=== PATIENT | female | born 1955 | race Caucasian/White ===

== ENCOUNTER 2023-08-20 13:48 | Inpatient (IN) ==
[2023-08-20 14:28] LABS: Hematocrit (blood only) 17.5 % (37.0-47.0); Hemoglobin 4.7 g/dl (12.0-16.0); Mean Corpuscular Hemoglobin 17.2 pg (25.0-34.0); Mean Corpuscular Hgb Conc 26.9 g/dL (32.0-36.0); Mean Corpuscular Volume 63.9 fL (80.0-100.0); Mean Platelet Volume 10.2 fL (9.4-12.4); Platelet Count 303 K/uL (130-400); RDW Standard Deviation 48.8 fL (36.4-46.3); Red Blood Count 2.74 M/uL (4.20-5.40); White Blood Count 15.84 K/ul (4.8-10.8)
[2023-08-20] MEDS ORDERED: SODIUM CHLORIDE 0.9% 250 ML IV PRN (14:32)
[2023-08-20 14:38] LABS: Albumin Globulin Ratio 1.5 (0.9-2); Albumin Level 3.8 gm/dl (3.4-5.0); BUN Creatinine Ratio 38.7 (10-20); Bilirubin,Total 0.4 mg/dl (0.2-1.0); Calcium 8.7 mg/dl (8.6-10.3); Creatinine Clr Calc Pharmacy 64.7 ml/min; Est GFR (African American) 96.3 ml/min; Est GFR (Non-African American) 83.1 ml/min; Globulin 2.6 gm/dl (2.5-4.0); Potassium 3.1 mmol/L (3.5-5.1); Total Protein 6.4 gm/dl (6.0-8.3)
--- NOTE | 2023-08-20 14:42 | XRay Report ---
TWO VIEW CHEST CLINICAL HISTORY: Atypical chest pain. FINDINGS: PA and lateral chest radiographs are compared to study dated 10/31/2022 and correlated with chest CT dated 03/27/2023. The cardiomediastinal silhouette is unremarkable. Emphysema and chronic in terstitial thickening is similar to previous. There are scattered calcified granulomas. No airspace c onsolidation or pleural effusion is identified. There is no pneumothorax. The skeletal structures are osteopenic. The bony thorax appears intact. Degenerative change and mild scoliosis is seen in the sp ine a IMPRESSION: Emphysematous change with no active disease in the chest. ACT 112: Negative or not required by law. Electronically signed by: Hill Shelton M.D. 08/20/2023 2:40 PM
[2023-08-20 14:43] LABS: Basophils # (auto) 0.07 K/uL (0.00-0.20); Basophils % (auto) 0.4 %; Hypochromasia Present; Immature Granulocytes # (auto) 0.12 K/uL (0.01-0.20); Immature Granulocytes % (auto) 0.8 %; Lymphocytes # (auto) 1.84 K/uL (1.20-3.40); Lymphocytes % (auto) 11.6 %; Microcytosis Present; Monocytes # (auto) 0.85 K/uL (0.11-0.59); Monocytes % (auto) 5.4 %; Neutrophils # (auto) 12.96 K/uL (1.40-6.50); Neutrophils % (auto) 81.8 %; Polychromasia 2+; Schistocytes 1+; Tear Drop Cells 1+
[2023-08-20 14:48] LABS: INR 1.1 (0.9-1.1); Partial Thromboplastin Ratio 0.7; Partial Thromboplastin Time 21 Seconds (21-31); Prothrombin Time 11.5 Seconds (9.0-12.0)
[2023-08-20 14:51] LABS: Troponin I High Sensitivity 76.3 pg/ml (0-14)
--- NOTE | 2023-08-20 14:52 | Emergency Department Note ---
Impression & Plan Symptomatic anemia, Elevated troponin, Acute hypokalemia, Metabolic acidosis, Leukocytosis ED Provider Note NAME: CLARI JI AGE: 68 SEX: F : 1955 ARRIVES VIA: Walk-In INFORMANT: Patient ED PROVIDER(S): Mark Toussaint DO CHIEF COMPLAINT: shortness of breath HPI: Patient is a 68-year-old female who presents to the ER with a past medical history of of duodenal ulcer, melena, hypertension, hyperlipidemia, COPD for shortness of breath which has been worsening over the past 10 days. She denies any headache or change in vision. No chest pain or belly pain. No nausea, vomiting, or diarrhea. No black or tarry stools. She notes she is on a blood thinner but does not remember exactly which one it is. She was sent in for evaluation of shortness of breath per the PCP. ADDITIONAL HISTORY OBTAINED: Per HPI Chronic Medical/Social Conditions Affecting Care: Per HPI PAST MEDICAL HISTORY:See Below PAST SURGICAL HISTORY:See Below FAMILY HISTORY:See Below SOCIAL HISTORY:See Below HOME MEDICATIONS:See Below ALLERGIES:See Below VITALS:See Below PHYSICAL EXAMINATION: GENERAL: Sitting up in bed, alert, pale appearing, disheveled EYE EXAM: normal conjunctiva. OROPHARYNX: mucous membranes are moist NECK: supple, no nuchal rigidity, no adenopathy, non-tender LUNGS: Clear to auscultation. Normal chest wall mechanics HEART: no murmurs, S1 normal and S2 normal ABDOMEN: abdomen soft, non-tender, normo-active bowel sounds, no masses, no rebound or guarding. RECTAL: Performed with female RN at bedside. Heme-negative. UPPER EXTREMITIES: upper extremities are grossly normal. LOWER EXTREMITIES: No pitting edema. NEURO EXAM: Normal sensorium, cranial nerves II-XII grossly intact, normal speech, no gross weakness of arms, no gross weakness of legs. MEDICAL DECISION MAKING: Patient is a 68-year-old female who presents the ER for the above-stated complaint. IV was established blood work was obtained. Labs show leukocytosis of 15,000. Hemoglobin at 4.7. Patient was slightly tachycardic. She denies any belly pain. Platelets were 303. Discussed with the pharmacist and outpatient labs reviewed and she only takes Plavix but no other thinners. D- dimer was negative. BMP with a hypokalemia at 3.1 and a CO2 of 19. BUN was elevated at 30 questioning an upper GI bleed. Glucose at 190. LFTs bilirubin was unremarkable. Troponin was slightly positive which I do favor secondary to the symptomatic anemia. Viral panel was negative. She was typed and crossed and ordered 2 units of PRBCs. I obtained consent. She was given an uncrossed unit while here in the ER. I discussed the case with the hospitalist patient was admitted for further workup. Consults/Care Managements Discussions: Per [facility] Triage Nursing notes reviewed. Limited review of prior medical records performed Vital Signs: reviewed and remarkable for tachy Differential diagnosis: Differential diagnoses includes but is not limited to pneumonia, bronchitis, COPD/Asthma exacerbation, pneumothorax, pulmonary embolism, congestive heart failure, acute coronary syndrome ER treatment provided: See below Diagnostics interpreted by me include EKG and cardiac monitoring as listed below: -Cardiac Monitoring: An order was placed for continuous cardiac monitoring. The monitor shows a rate of 101 with sinus rhythm. -ECG: Sinus tachycardia rate of 121 Normal axis No PVCs ST depressions in the inferior leads ST depressions in the lateral leads -Laboratory studies:Interpreted by me as stated above in MDM and shown below. Imaging studies: Xrays: As interpreted by me: Portable AP upright 1 view of the chest shows no focal infiltrate CTs show: none Procedures:none Critical Care: I have personally spent 31 minutes of critical care time in the direct management of this patient. This includes bedside care, interpretation of diagnostic studies, and testing, discussion with consultants, patient, and family members, and other required patient management activities. This 31 minutes is in excess of all separately billable procedures. Past Med/Surg History Medical History History of COVID-19 Fatty liver Seasonal allergies GERD (gastroesophageal reflux disease) RUQ pain Epigastric abdominal pain Surgical History Hx of tubal ligation History of surgical removal of pilonidal cyst Hx of tooth extraction Family History Mother Myocardial infarction Heart disease Stroke Father Diabetes Grandfather Cancer Uncle Cancer Denies family history of Ovarian cancer Prostate cancer Breast cancer Colorectal cancer Social History Smoking Status: Current every day smoker Age Started Using Tobacco: 18; Cigarettes Per Day: 10-12; Second Hand Exposure: Yes (as a child); Do You Dip or Chew Tobacco: No; Hx Alcohol Use: Yes (HBCS wine coolers) Alcohol type: other Alcohol Intake Frequency: Monthly or Less Hx Substance Use: No Preferred Language: Occitan Communication Ability: Effective Visual Impairment: Limited Hearing Ability: Normal 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 has been having trouble with stomach ulcer. caffeine: No during the past year weight has: decreased > 10 lbs Dental Care, Regularly: No Physical Activity Frequency: 3-4 Times per Week Physical Activity Frequency Comment: Occasional exercise with working/house cleaning Seatbelt Use: always Sunscreen Use: Yes Assistive Devices: None Allergies Allergies Allergy/AdvReac Type Severity Reaction Status Date / Time Penicillins Allergy Unknown tinnitus Verified 08/20/23 12:07 Sulfa (Sulfonamide Allergy Unknown Unknown Verified 08/20/23 12:07 Antibiotics) Home Meds Previous Rx's Medication Instructions Recorded cholecalciferol (vitamin D3) 125 125 mcg PO DAILY #30 caps 11/08/22 mcg (5,000 unit) capsule hydrochlorothiazide 12.5 mg tablet 12.5 mg PO DAILY #90 tabs 11/08/22 pantoprazole 40 mg tablet,delayed 40 mg PO BID #180 tabs 02/25/23 release ondansetron 4 mg disintegrating 4 mg PO Q8H PRN nausea and 03/27/23 tablet vomiting #30 tabs clopidogrel 75 mg tablet 75 mg PO DAILY #90 tabs 06/17/23 atorvastatin 80 mg tablet 80 mg PO HS #90 tabs 06/27/23 Results & Data (ED) Vital Signs Vital Signs - 24 hr 08/20/23 13:50 08/20/23 13:50 08/20/23 14:39 Temperature 35.7 C L Temperature Source Oral Pulse Rate 102 H 103 H Pulse Rhythm Pulse Strength Respiratory Rate 16 Blood Pressure 139/62 Blood Pressure Mean 87 Blood Pressure Position Pulse Oximetry 100 Oxygen Delivery Method Room Air Room Air Sepsis Recent Fever Within 48 Hours No Sepsis New/Unexplained Change in Mental Status No Sepsis Action Taken by Nursing No Action Required 08/20/23 14:47 08/20/23 15:10 08/20/23 15:29 Temperature 36.7 C 36.7 C Temperature Source Oral Oral Pulse Rate 97 H 97 H Pulse Rhythm Regular Regular Pulse Strength Normal Normal Respiratory Rate 18 18 Blood Pressure 124/75 109/75 Blood Pressure Mean 91 86 Blood Pressure Position Semi-fowlers Semi-fowlers Pulse Oximetry 98 100 100 Oxygen Delivery Method Room Air Sepsis Recent Fever Within 48 Hours Sepsis New/Unexplained Change in Mental Status Sepsis Action Taken by Nursing 08/20/23 15:44 08/20/23 16:14 Temperature 36.7 C 36.7 C Temperature Source Oral Oral Pulse Rate 100 H 96 H Pulse Rhythm Regular Regular Pulse Strength Normal Normal Respiratory Rate 20 20 Blood Pressure 122/75 117/72 Blood Pressure Mean 90 87 Blood Pressure Position Semi-fowlers Semi-fowlers Pulse Oximetry 100 98 Oxygen Delivery Method Sepsis Recent Fever Within 48 Hours Sepsis New/Unexplained Change in Mental Status Sepsis Action Taken by Nursing Laboratory Data 08/20/23 14:01 08/20/23 14:01 Lab Results 08/20/23 08/20/23 Range/Units 14:01 14:45 WBC 15.84 H (4.8-10.8) K/ul RBC 2.74 L (4.20-5.40) M/uL Hgb 4.7 L* (12.0-16.0) g/dl Hct 17.5 L* (37.0-47.0) % MCV 63.9 L (80.0-100.0) fL MCH 17.2 L (25.0-34.0) pg MCHC 26.9 L (32.0-36.0) g/dL RDW Std Deviation 48.8 H (36.4-46.3) fL RDW Coeff of Galo 22.0 H (11.5-14.5) % Plt Count 303 (130-400) K/uL MPV 10.2 (9.4-12.4) fL Immature Gran % (Auto) 0.8 % Neut % (Auto) 81.8 % Lymph % (Auto) 11.6 % [place] % (Auto) 5.4 % Eos % (Auto) 0.0 % Baso % (Auto) 0.4 % Reticulocyte % (Auto) 3.04 H (0.50-2.00) % Neut # (Auto) 12.96 H (1.40-6.50) K/uL Lymph # (Auto) 1.84 (1.20-3.40) K/uL J[place] # (Auto) 0.85 H (0.11-0.59) K/uL Eos # (Auto) 0.00 (0.00-0.50) K/uL Baso # (Auto) 0.07 (0.00-0.20) K/uL Reticulocyte # 0.080 (0.020-0.100) 10^6/uL Immature Gran # (Auto) 0.12 (0.01-0.20) K/uL Polychromasia 2+ Hypochromasia Present Microcytosis Present Tear Drop Cells 1+ Schistocytes 1+ PT 11.5 (9.0-12.0) Seconds INR 1.1 (0.9-1.1) APTT 21 (21-31) Seconds PTT Ratio 0.7 Fibrinogen 403 H (184-400) mg/dl D-Dimer 300 (0-500) ug/L FEU Sodium 135 L (136-145) mmol/L Potassium 3.1 L (3.5-5.1) mmol/L Chloride 104 (98-107) mmol/L Carbon Dioxide 19 L (21-32) mmol/L Anion Gap 12 H (3-11) BUN 29 H (6-23) mg/dl Creatinine 0.75 (0.6-1.2) mg/dl Est Cr Clr Drug Dosing 64.7 ml/min Est GFR ( Amer) 96.3 ml/min Est GFR (Non-Af Amer) 83.1 ml/min BUN/Creatinine Ratio 38.7 H (10-20) Glucose 191 H (70-99(Fasting)) mg/dl Calcium 8.7 (8.6-10.3) mg/dl Magnesium 1.9 (1.7-2.4) mg/dl Iron 11 L (35-150) mcg/dl TIBC 426 (250-450) mcg/dl Unsaturated IBC 415 H (155-355) mcg/dl Transferrin % Sat 3 L (15-50) % Total Bilirubin 0.4 (0.2-1.0) mg/dl AST 11 L (13-39) U/L ALT 12 (7-52) U/L Alkaline Phosphatase 81 (34-104) U/L Lactate Dehydrogenase 150 (86-244) U/L Troponin I High Sens 76.3 H* (0-14) pg/ml Total Protein 6.4 (6.0-8.3) gm/dl Albumin 3.8 (3.4-5.0) gm/dl Globulin 2.6 (2.5-4.0) gm/dl Albumin/Globulin Ratio 1.5 (0.9-2) Vitamin B12 288 (180-914) pg/ml Folate 17.08 (>5.38) ng/ml SARS-CoV-2 (PCR) NEGATIVE (Negative) Influenza Type A (PCR) Negative (Neg) Influenza Type B (PCR) Negative (Neg) RSV (RT-PCR) Negative (Neg) Blood Type O Positive Antibody Screen NEGATIVE Crossmatch See Detail Imaging Data Radiologist's Impression: Chest X-Ray 08/20/23 13:58 TWO VIEW CHEST CLINICAL HISTORY: Atypical chest pain. FINDINGS: PA and lateral chest radiographs are compared to study dated 10/31/2022 and correlated with chest CT dated 03/27/2023. The cardiomediastinal silhouette is unremarkable. Emphysema and chronic interstitial thickening is similar to previous. There are scattered calcified granulomas. No airspace consolidation or pleural effusion is identified. There is no pneumothorax. The skeletal structures are osteopenic. The bony thorax appears intact. Degenerative change and mild scoliosis is seen in the spine a IMPRESSION: Emphysematous change with no active disease in the chest. ACT 112: Negative or not required by law. Electronically signed by: Hill Shelton M.D. 08/20/2023 2:40 PM Discharge Plan Visit Data Chief Complaint: Shortness of Breath/Dyspnea Stated Complaint: TROUBLE BREATHING, REF BY DOC ABN EKG ED Provider: Mark Toussaint Discharge Problem: Symptomatic anemia, Elevated troponin, Acute hypokalemia, Metabolic acidosis, Leukocytosis Forms Stand Alone Forms: [facility] Liquid[facility] Prescriptions Prescriptions: No Action pantoprazole 40 mg tablet,delayed release (DR/EC) 40 mg PO BID Qty: 180 3RF ondansetron 4 mg tablet,disintegrating 4 mg PO Q8H PRN (Reason: nausea and vomiting) Qty: 30 5RF clopidogrel 75 mg tablet 75 mg PO DAILY Qty: 90 3RF cholecalciferol (vitamin D3) 125 mcg (5,000 unit) capsule 125 mcg PO DAILY Qty: 30 0RF hydrochlorothiazide 12.5 mg tablet 12.5 mg PO DAILY Qty: 90 3RF atorvastatin 80 mg tablet 80 mg PO HS Qty: 90 3RF Referrals Referrals: Shaun Khan DO [Primary Care Provider] - Discharge Problem: Leukocytosis Qualifiers: Leukocytosis type: unspecified Qualified Code(s): D72.829 - Elevated white blood cell count, unspecified
[2023-08-20 14:53] LABS: Influenza A virus by PCR Negative (Neg); Influenza B virus by PCR Negative (Neg); RSV by PCR Negative (Neg); SARS CoV2 RNA(COVID-19) Ceph NEGATIVE (Negative)
--- NOTE | 2023-08-20 15:02 | Electrocardiogram Report ---
Test Reason : Blood Pressure : / mmHG Vent. Rate : 121 BPM Atrial Rate : 121 BPM P-R Int : 140 ms QRS Dur : 088 ms QT Int : 346 ms P-R-T Axes : 089 030 078 degrees QTc Int : 491 ms Sinus tachycardia Abnormal ECG When compared with ECG of 31-OCT-2022 07:42, Vent. rate has increased BY [address] now depressed in Inferior leads Confirmed by Dustin Amador ([id number]) on 08/20/2023 3:01:56 PM Referred By: Confirmed By:Jose Amador
--- NOTE | 2023-08-20 15:10 | History & Physical Report ---
Date of Service August 20, 2023 Assessment & Plan (1) Symptomatic anemia: Plan: -Admit to the PCU on tele and pulse oximetry -Currently hemodynamically stable, stable on RA, and asymptomatic at rest -Presented to the ED from her PCP's office earlier today due to ongoing MONAHAN/SOB and generalized weakness -Found to have a Hgb of 4.7, down from 12.1 as of 04/17/23 -ED reports that her stool was heme negative on MIRIAM -Patient denies signs of recent bleeding, denies chest pain, abd, pain, hematuria, melena, bloody stools, and recent LE pain -MCV, Hct, and MCHC are consistent with possible iron deficiency -Platelets, INR, and LFT's are WNL -She is without signs of bruising/bleeding on inspection of both anterior/posterior lower extremities -Patient was diagnosed with a duodenal ulcer on her last EGD at [facility] on 05/22/2022 -At this time the most likely source of her severe anemia is a possible GI ulcer -We will obtain a STAT CT of the abd/pelvis w/IV con for further evaluation -Will obtain D-dimer, LDH, Haptoglobin, and Fibrinogen for further evaluation of possible hemolysis -Currently receiving the 1 units of uncrossed PRBC's, will receive 1 unit of crossed PRBC's when the first unit is complete -Will start q6h CBC after the second unit is complete -Goal Hgb should be at or above 8 with her elevated tropnin level -GI has been consulted and is planning on doing an EGD tomorrow -Strict NPO at this time -Will need to hold her Plavix at this time as her severe anemia is more life threatening than possible occluded left arterial stent placed in May of this year -Will start Protonix drip with bolus now -Order for 2 large bore IV's was placed -Instructed patient to not get out of bed without help to prevent possible syncope or falls -BL YEFRI's for DVT PPX -AM CMP, mag, PT/INR (2) Dyspnea on exertion: Plan: -Patient has noted significant MONAHAN since 08/14/23 -Denies symptoms at rest -Denies recent chest pain/pressure -She is a current smoker with 10 Cigarettes daily -Has been stable on RA and hemodynamically stable -She does have a previous hx of DVT/PE but is currently without signs of DVT in the BL LE's -Initial high sen trop elevated at 76 -Patient did have ST segment depressions in the inferior leads on arrival -CXR today shows signs of emphysema but is otherwise unremarkable -Likely due to her significant anemia and poor lung function at baseline -Continue treatment per anemia plan, continue to monitor on tele and pulse oximetry -Monitor for improvement with ongoing transfusions (3) Elevated troponin: Plan: -Initial high sen trop elevated at 76 -Patient has been significantly dyspneic on exertion but has been asymptomatic at rest -Initial ECG obtained in the ED, while the patient was tachycardic shows ST segment depressions in the inferior leads -Likely due to demand from here severe anemia with likely underlying CAD as she has a significant hx of PAD in the recent past -Will monitor 2 hour high sen trop and continue to trend q6h overnight -Continue to monitor on tele -Will repeat an ECG after her initial unit of PRBC's is complete to monitor for improvement in her ST segment depressions -If troponin continues to elevated or she becomes symptomatic at rest will consult Cardiology (4) High anion gap metabolic acidosis: Plan: -AG elevated at 12 with bicarb of 19 -Has been stable on RA and has been hemodynamically stable -Will obtain a STAT lactate level as I suspect this will be elevated due to poor peripheral perfusion with her Hgb of 4.7 -Will continue to transfusion and monitor closely -Monitor evening BMP (5) Hypokalemia: Plan: -Initial potassium level of 3.1 -Mag is stable at 1.9 -Likely due to poor oral intake over the past week -Will give 3 bags of 10 meq IV KCL on admission -Will order repeat potassium level tonight with repeat labs and replete as needed -Conitue to monitor on tele (6) PAD (peripheral artery disease): Plan: -S/P Stent to left JEANA occlusion with Dr. Domingo on 05/2023 -Has been on plavix monotherapy, last dose was this am -Will need to hold plavix for now until she is stable from a bleeding risk -Will need to resume plavix when stable (7) GERD (gastroesophageal reflux disease): Plan: -Continue Protonix drip (8) HTN (hypertension): Plan: -Stable -Holding antihypertensives with possible GI bleed (9) COPD (chronic obstructive pulmonary disease): Plan: -Stable on RA -In no respiratory distress -Incentive spirometry Plan The patient was discussed with Edin at the time of the admission History of Present Illness Chief Complaint: Ongoing SOB/MONAHAN Primary Care Provider: Shaun Khan DO Thi is a 68 year old female with a PMH significant for PAD S/P Stent to left JEANA occlusion 05/[address] Dustin Domingo (currently on Plavix), previous hx of DVT and PE (Previously on Plavix), HTN, dyslipidemia, CAD, tobacco abuse, COPD, and hx od PUD with previous GI bleed who presented to the [facility] ED from her PCP's office due to concerns for progressive MONAHAN/SOB. Per the PCP note, the patient has been experiencing SOB, fatigue, weakness, and chills since 08/14/23. Due to her complex medical hx including previous DVT/PE she was sent to the ED for further evaluation. She was noted to be tachycardic at 103 BPM but was otherwise stable. Labs were significant for a Hgb of 4.7 (down from 12 as of 04/17/23), WBC of 15 with neutrophil predominance of 12, Hct of 17, MCV of 63, MCHC of 26, stable cr of 0.75 with elevated BUN of 29, AG of 12 with bicarb of 19, potassium of 3.1, LFT's and INR WNL, initial high sen trop of 75, and Covid 19/RSV/Influenza negative. Chest xray was read as "Emphysematous change with no active disease in the chest.". Prior to admission the patient was consented for blood, ordered 1 unit of uncrossed PRBC's with a second unit of crossed PRBC's to be giving after. At the time of the exam the patient was sitting in bed in no acute distress. She appears ill but non-toxic. She states that she had been in her normal state of health until 08/14/23 when she started to develop what she thought were flu like symptoms including chills, fatigue, body aches, and significant MONAHAN. She has been asymptomatic at rest. When asked, she clearly denies recent fever, chest pain/pressure, SOB at rest, cough, hemoptysis, abd pain, vomiting, dysuria, hematuria, melena, diarrhea, bright red stool, LE pain/swelling, and recent trauma. She has been taking her home medications as prescribed including her daily Plavix with her last dose being this am. She has had some nausea but denies vomiting. She states that she had an EGD approximately 2 years ago which is when she was diagnosed with her Duodenal Ulcer. She has been taking Protonix daily and denies recent alcohol, aspirin, Aleve, Advil, Motrin, or other NSAID's. She is still smoking approximately 10 Cigarettes daily. When she has pain recently she has only been using tylenol. She is a full code and would want her son to make medical decisions for her if she cannot make them herself. Please refer to Dr. Jesus' attestation for any changes to the treatment plan Allergies Allergy/AdvReac Type Severity Reaction Status Date / Time Penicillins Allergy Unknown tinnitus Verified 08/20/23 12:07 Sulfa (Sulfonamide Allergy Unknown Unknown Verified 08/20/23 12:07 Antibiotics) Home Medications Medication Instructions Recorded Confirmed Type cholecalciferol (vitamin D3) 125 125 mcg PO DAILY #30 caps 11/08/22 08/20/23 Rx mcg (5,000 unit) capsule hydrochlorothiazide 12.5 mg tablet 12.5 mg PO DAILY #90 tabs 11/08/22 08/20/23 Rx pantoprazole 40 mg tablet,delayed 40 mg PO BID #180 tabs 02/25/23 08/20/23 Rx release ondansetron 4 mg disintegrating 4 mg PO Q8H PRN nausea and 03/27/23 08/20/23 Rx tablet vomiting #30 tabs clopidogrel 75 mg tablet 75 mg PO DAILY #90 tabs 06/17/23 08/20/23 Rx atorvastatin 80 mg tablet 80 mg PO HS #90 tabs 06/27/23 08/20/23 Rx Past Med/Surg History Medical History History of COVID-19 Fatty liver Seasonal allergies GERD (gastroesophageal reflux disease) RUQ pain Epigastric abdominal pain Surgical History Hx of tubal ligation History of surgical removal of pilonidal cyst Hx of tooth extraction Family History Mother Myocardial infarction Heart disease Stroke Father Diabetes Grandfather Cancer Uncle Cancer Denies family history of Ovarian cancer Prostate cancer Breast cancer Colorectal cancer Social History Smoking Status: Current every day smoker Age Started Using Tobacco: 18; Cigarettes Per Day: 10-12; Second Hand Exposure: Yes (as a child); Do You Dip or Chew Tobacco: No; Hx Alcohol Use: Yes ([employer] wine coolers) Alcohol type: other Alcohol Intake Frequency: Monthly or Less Hx Substance Use: No Preferred Language: R[place] Communication Ability: Effective Visual Impairment: Limited Hearing Ability: Normal Wood 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 has been having trouble with stomach ulcer. caffeine: No during the past year weight has: decreased > 10 lbs Dental Care, Regularly: No Physical Activity Frequency: 3-4 Times per Week Physical Activity Frequency Comment: Occasional exercise with working/house cleaning Seatbelt Use: always Sunscreen Use: Yes Assistive Devices: None Physical Exam Physical Exam: Physical Exam: General: In no acute distress, stated age, ill appearing but non-toxic HEENT: Normocephalic, atraumatic, no scleral icterus, pupils around round, symmetrical, and reactive to light, pale palpebral conjunctivae, moist mucus membranes, trachea midline, no thyromegaly Chest/Pulm: No respiratory distress, symmetrical chest expansion, scattered expiratory wheezing Cardiac: tachycardic rate, regular rhythm, no murmurs noted Abdomen: Negative for ascites and bruising, normoactive bowel sounds, soft, non-tender to palpation throughout Musculoskeletal: Symmetrical and without signs of acute trauma, upper and lower extremities with full ROM, no atrophy, spasticity, or flaccidity Extremities: Radial, dorsalis pedis, and posterior tibial pulses are intact and symmetrical, no edema noted in the BL LE's Skin: Extensive skin exam was done at the time of the admission and was negative for sings of bruising or bleeding in the head, chest, abdomen, back, BL flanks, buttocks, and BL lower extremities >Previous stenting sites on the BL thighs appear intact and without signs of bleeding/bruising. Neuro: Alert and oriented to person, place, month, year, and president, no focal defects, no tremors noted Psych: No acute distress, calm and cooperative during the exam Results & Data Results & Data Vital Signs (Past 12 Hours) Vital Signs Temp Pulse Resp BP Pulse Ox O2 Del Method 08/20/23 14:47 98 Room Air 08/20/23 14:39 103 H 08/20/23 13:50 35.7 C L 102 H 16 139/62 100 Room Air 08/20/23 13:50 Room Air Laboratory Results Abnormal lab results 08/20/23 08/20/23 Range/Units 14:01 14:45 WBC 15.84 H (4.8-10.8) K/ul RBC 2.74 L (4.20-5.40) M/uL Hgb 4.7 L* (12.0-16.0) g/dl Hct 17.5 L* (37.0-47.0) % MCV 63.9 L (80.0-100.0) fL MCH 17.2 L (25.0-34.0) pg MCHC 26.9 L (32.0-36.0) g/dL RDW Std Deviation 48.8 H (36.4-46.3) fL RDW Coeff of Galo 22.0 H (11.5-14.5) % Reticulocyte % (Auto) 3.04 H (0.50-2.00) % Neut # (Auto) 12.96 H (1.40-6.50) K/uL [place] # (Auto) 0.85 H (0.11-0.59) K/uL Sodium 135 L (136-145) mmol/L Potassium 3.1 L (3.5-5.1) mmol/L Carbon Dioxide 19 L (21-32) mmol/L Anion Gap 12 H (3-11) BUN 29 H (6-23) mg/dl BUN/Creatinine Ratio 38.7 H (10-20) Glucose 191 H (70-99(Fasting)) mg/dl Iron 11 L (35-150) mcg/dl Unsaturated IBC 415 H (155-355) mcg/dl Transferrin % Sat 3 L (15-50) % AST 11 L (13-39) U/L Troponin I High Sens 76.3 H* (0-14) pg/ml Crossmatch See Detail Diagnostic Findings Chest X-Ray 08/20/23 13:58 TWO VIEW CHEST CLINICAL HISTORY: Atypical chest pain. FINDINGS: PA and lateral chest radiographs are compared to study dated 10/31/2022 and correlated with chest CT dated 03/27/2023. The cardiomediastinal silhouette is unremarkable. Emphysema and chronic interstitial thickening is similar to previous. There are scattered calcified granulomas. No airspace consolidation or pleural effusion is identified. There is no pneumothorax. The skeletal structures are osteopenic. The bony thorax appears intact. Degenerative change and mild scoliosis is seen in the spine a IMPRESSION: Emphysematous change with no active disease in the chest. ACT 112: Negative or not required by law. Electronically signed by: Hill Shelton M.D. 08/20/2023 2:40 PM ECG Additional Comments: Sinus tachycardia Abnormal ECG When compared with ECG of 31-OCT-2022 07:42, Vent. rate has increased BY [address] now depressed in Inferior leads Confirmed by Dustin Amador ([id number]) on 08/20/2023 3:01:56 PM Code Status & VTE Plan Code Status Full code VTE Prophylaxis Plan VTE Prophylaxis will be ordered: Yes Supervising Physician Co-Signing Physician Notes I have personally seen, evaluated and examined the patient. I have also personally discussed the management of the patient with the resident physician/ARNULFO and I agree with the exam findings documented in the history and physical examination and the documented assessment and plan unless otherwise stated below. Brief Exam: In general this is a pleasant 68-year-old female who is alert and o riented x 3. She again denies to my myself no rectal bleeding no hematic emesis no black stools no tarry stools no change in bowel habits other than over the last 4 to 6 months she has had constipation and fullness in her belly. She has never had a colonoscopy. HEENT: Normocephalic atraumatic. Her conjunctive are quite pale. Heart: Regular rate and rhythm no murmur or ectopy or rub. Lungs: Diminished but clear. Abdomen is mildly protuberant soft minimal discomfort with deep palpation no rebound no peritoneal sign no pressure organomegaly or abdominal bruits. Extremities: Intact no clubbing cyanosis or edema. Neurologically: Alert and oriented x 3 no focal deficit on exam. Assessment/plan: As described above. Please refer to orders for further planning. Transfuse up to at least a hemoglobin of 7. Await iron studies. Appreciate GIs input. Once the patient has upper or lower scopes ruling out any pathology that would contraindicate use of Plavix we will restart the Plavix at that time. PG Care Time/CCT Total # of Minutes Spent Total Time Spent with Patient: Total time spent is greater than 50% in coordination of care (as documented) at patient's floor/unit and/or counseling patient: Coding [place] [address] INT INP/OBS CARE 3/75MIN Patient Type Established Medical Decision Making High Complexity Diagnoses Symptomatic anemia D64.9 Dyspnea on exertion R06.09 Elevated troponin R79.89 High anion gap metabolic acidosis E87.29 Hypokalemia E87.6 PAD (peripheral artery disease) I73.9 GERD (gastroesophageal reflux disease) K21.9 HTN (hypertension) I10 COPD (chronic obstructive pulmonary disease) J44.9
[2023-08-20 15:35] LABS: Reticulocyte % 3.04 % (0.50-2.00); Reticulocytes # 0.08 10^6/uL (0.020-0.100)
[2023-08-20 15:38] LABS: Magnesium 1.9 mg/dl (1.7-2.4)
[2023-08-20 16:21] LABS: D Dimer 300 ug/L FEU (0-500); Fibrinogen 403 mg/dl (184-400)
[2023-08-20 16:23] LABS: Folate (Folic Acid),Ser orPlas 17.08 ng/ml (>5.38)
[2023-08-20] MEDS: OPTIRAY 320 100ml IV ONE (16:42)
[2023-08-20] MEDS: PANTOprazole 80 MG in DEXTROSE 5% 100 ML IV ONE (16:58)
--- NOTE | 2023-08-20 17:19 | CT Scan Report ---
CT SCAN OF THE ABDOMEN AND PELVIS WITH IV CONTRAST CLINICAL HISTORY: Constipation. Anemia. COMPARISON STUDY: Abdominal ultrasound dated 10/06/2021. TECHNIQUE: Following the IV administration of 92 cc of Optiray 320, CT scan of the abdomen and pelvi s is performed from the lung bases to the proximal femora. Images are reviewed in the axial, sagittal , and coronal planes. IV contrast was administered without complication. A dose lowering technique wa s utilized adhering to the principles of ALARA. CT DOSE: 682.25 mGy.cm FINDINGS: Lung bases: The heart is normal in size and without pericardial effusion. There are scattered calcifi ed granulomas. A 3 mm right lower lobe pulmonary nodule is seen on image #12. The lung bases are othe rwise clear noting bibasilar scarring/atelectasis. Liver: The contrast-enhanced liver is normal in size, contour, and attenuation. There is no intrahepa tic biliary ductal dilatation. The hepatic veins and portal veins are patent. Gallbladder: Unremarkable. Spleen: Normal in size and attenuation. Pancreas: There is significant and abnormal dilatation of the pancreatic duct which measures up to 12 mm near the ampulla. No obvious mass lesion is identified. There is corresponding pancreatic atrophy . There is no significant dilatation of the common bile duct. Adrenal glands: Unremarkable. Kidneys: The contrast enhanced kidneys are normal in size and without hydronephrosis. The kidneys enh ance symmetrically. A 1.4 cm cyst is noted on the left. Abdominal vasculature: There is advanced atherosclerotic calcification and mild ectasia of the abdomi nal aorta. A stent in the left common iliac artery is patent. Bowel: There is mild colonic fecal retention. Question focal irregular wall thickening versus under d istention of the ascending colon on axial image #159. No bowel obstruction is seen. There is mild inf iltration identified around the proximal duodenum. There is layering hyperdense material within the s tomach and duodenum. The appendix is well-visualized and normal. Peritoneum: There is no intraperitoneal free air or abdominal ascites. There is a small fat-containin g umbilical hernia. Lymphadenopathy: None. Pelvic viscera: The bladder is mildly distended but otherwise normal in appearance. The uterus and ad nexa are normal as visualized. Skeletal structures: The skeletal structures are osteopenic. There is moderate lumbosacral spondylosi s. No lytic or blastic lesions are seen. IMPRESSION: 1. There is significant and abnormal dilatation of the main pancreatic duct with corresponding glandu lar atrophy. The duct is dilated to the ampulla, with no obvious mass lesion identified. The common b ile duct and intrahepatic bile ducts are normal in caliber. Although this could potentially be relate d to stricture of the pancreatic duct, an occult ampullary mass lesion is the diagnosis of exclusion. GI follow-up and ERCP is recommended in follow-up. 2. There is mild infiltration seen around the proximal duodenum, which may be related to the pancreat ic process. A duodenitis or ulcer disease could appear similar. Additionally, there is a small amount of layering hyperdense material within the stomach and proximal duodenum. This is nonspecific and ma y represent ingested material. Extravasated contrast is not entirely excluded. This should also be as sessed at the time of endoscopy. 3. There is underdistention versus focal irregular wall thickening of the ascending colon. Underdiste ntion is favored. If not recently performed then a follow-up colonoscopy is recommended for further a ssessment 4. Additional findings as above. ACT 112: Positive. There are findings on this exam that require communication between the performing entity and the patient following Patient Test Result Information Act ([place] Act 112) guidelines. Electronically signed by: Hill Shelton M.D. 08/20/2023 5:18 PM
[2023-08-20] MEDS: PANTOprazole 40 MG in DEXTROSE 5% MINI-B 100 ML IV SCH (17:24)
[2023-08-20] MEDS: PANTOPRAZOLE BOLUS/DRIP IV STA (17:24)
[2023-08-20] MEDS: POTASSIUM CHLORIDE / WTR 10 MEQ/100 ML PLCT IV SCH (17:24)
[2023-08-20 18:25] LABS: Appearance Urine Clear (Clear); Bilirubin Urine Negative (Negative); Blood Urine Negative (Negative); Color Urine Yellow; Glucose Urine UA Negative (Negative); Ketones Urine Negative (Negative); Leukocyte Esterase Urine Negative (Negative); Nitrite Urine Negative (Negative); Protein Urine Negative (Negative); Specific Gravity Urine 1.027 (1.000-1.030); Urobilinogen Urine Negative (Negative)
[2023-08-20 23:24] LABS: BUN Creatinine Ratio 29.6 (10-20); Calcium 8.1 mg/dl (8.6-10.3); Creatinine Clr Calc Pharmacy 67.3 ml/min; Est GFR (African American) 102.9 ml/min; Est GFR (Non-African American) 88.8 ml/min; Potassium 3.5 mmol/L (3.5-5.1)
[2023-08-20 23:50] LABS: Troponin I High Sensitivity 350.9 pg/ml (0-14)
[2023-08-20 23:54] LABS: Anisocytosis Present; Basophils # (auto) 0.05 K/uL (0.00-0.20); Basophils % (auto) 0.3 %; Eosinophils # (auto) 0.02 K/uL (0.00-0.50); Eosinophils % (auto) 0.1 %; Hemoglobin 7.2 g/dl (12.0-16.0); Hypochromasia Present; Immature Granulocytes # (auto) 0.13 K/uL (0.01-0.20); Immature Granulocytes % (auto) 0.8 %; Lymphocytes # (auto) 2.32 K/uL (1.20-3.40); Lymphocytes % (auto) 15.1 %; Mean Corpuscular Hemoglobin 21.2 pg (25.0-34.0); Mean Corpuscular Volume 70.6 fL (80.0-100.0); Mean Platelet Volume 10.6 fL (9.4-12.4); Microcytosis Present; Monocytes # (auto) 1.46 K/uL (0.11-0.59); Monocytes % (auto) 9.5 %; Neutrophils # (auto) 11.42 K/uL (1.40-6.50); Neutrophils % (auto) 74.2 %; Platelet Count 199 K/uL (130-400); Polychromasia 1+; RDW Coefficient of Variation 24.5 % (11.5-14.5); RDW Standard Deviation 61.6 fL (36.4-46.3)
[2023-08-21] MEDS ORDERED: SODIUM CHLORIDE 0.9% 250 ML IV PRN (00:51)
[2023-08-21] MEDS ORDERED: STAT IV/IM STA (00:52)
[2023-08-21] MEDS: CALCIUM GLUCONATE 10% 1,000 MG in SODIUM CHLOR 0.9% MINI-B 50 ML IV ONE (03:36)
[2023-08-21 05:36] LABS: Prothrombin Time 11.4 Seconds (9.0-12.0)
[2023-08-21 05:40] LABS: Albumin Globulin Ratio 1.5 (0.9-2); Albumin Level 3.3 gm/dl (3.4-5.0); BUN Creatinine Ratio 25.7 (10-20); Bilirubin,Total 1.2 mg/dl (0.2-1.0); Calcium 8.6 mg/dl (8.6-10.3); Creatinine Clr Calc Pharmacy 68.2 ml/min; Est GFR (African American) 104.6 ml/min; Est GFR (Non-African American) 90.3 ml/min; Globulin 2.2 gm/dl (2.5-4.0); Magnesium 1.9 mg/dl (1.7-2.4); Potassium 3.3 mmol/L (3.5-5.1); Total Protein 5.5 gm/dl (6.0-8.3); Troponin I High Sensitivity 367.5 pg/ml (0-14)
[2023-08-21 05:53] LABS: Anisocytosis Present; Basophils # (auto) 0.05 K/uL (0.00-0.20); Basophils % (auto) 0.4 %; Eosinophils # (auto) 0.08 K/uL (0.00-0.50); Eosinophils % (auto) 0.6 %; Hematocrit (blood only) 26.6 % (37.0-47.0); Hemoglobin 8.1 g/dl (12.0-16.0); Hypochromasia Present; Immature Granulocytes # (auto) 0.07 K/uL (0.01-0.20); Immature Granulocytes % (auto) 0.6 %; Lymphocytes # (auto) 2.19 K/uL (1.20-3.40); Lymphocytes % (auto) 17.7 %; Mean Corpuscular Hemoglobin 22.3 pg (25.0-34.0); Mean Corpuscular Hgb Conc 30.5 g/dL (32.0-36.0); Mean Corpuscular Volume 73.3 fL (80.0-100.0); Mean Platelet Volume 10.5 fL (9.4-12.4); Monocytes # (auto) 1.27 K/uL (0.11-0.59); Monocytes % (auto) 10.3 %; Neutrophils # (auto) 8.69 K/uL (1.40-6.50); Neutrophils % (auto) 70.4 %; Platelet Count 165 K/uL (130-400); Polychromasia 1+; RDW Coefficient of Variation 23.4 % (11.5-14.5); RDW Standard Deviation 61.1 fL (36.4-46.3); Red Blood Count 3.63 M/uL (4.20-5.40); White Blood Count 12.35 K/ul (4.8-10.8)
[2023-08-21] MEDS: POTASSIUM CHLORIDE / WTR 10 MEQ/100 ML PLCT IV SCH (08:10)
--- NOTE | 2023-08-21 08:15 | Gastrointestinal Consultation ---
Date of Consultation August 21, 2023 Assessment & Plan (1) Symptomatic anemia: Patient has been NPO, came in with low hgb of 4.7 which has improved with PRBC. she has been given 3 units and her hgb improved to 8.1 today. She is not seeing any obvious GI bleeding, but does have a history of a duodenal ulcer. SOB has improved since recieving the PRBC. I had discussed case with Dr. Booker who helped advise on plan. - Will plan for EGD today. - continue with protonix drip. - monitor Hgb/hct. transfuse as needed. - will recommend colonoscopy as an outpatient to assess the possible wall thickening of her ascending colon seen on CT scan. - she will need to be set up for EUS/ERCP as an outpatient for evaluation of the abnormal dilation of the main pancreatic duct. Supervising Physician Co-Signing Physician Notes I saw the patient and agree with the findings as documented by JANES Bonilla Proceed with EGD. risks/benefits and procedure discussed with patient, who agrees to proceed History of Present Illness Reason for Consultation: hgb 4.7, history of duodenal ulcer Requesting Physician: Tom Elias PA-C Attending Physician: Romario Hawthorne MD History of Present Illness Patient is a 68 year old female with a past medical history of PAD S/P Stent to left JEANA occlusion 05/[address] Dustin Domingo (currently on Plavix), previous hx of DVT and PE (Previously on Plavix), HTN, dyslipidemia, CAD, tobacco abuse, COPD, and hx of PUD with previous GI bleed who presented to the [facility] ED from her PCP's office due to concerns for progressive MONAHAN/SOB. Patient tells me that she has had this come on suddenly in the past few days. Upon evaluation in the ED her hgb was 4.7. she has been given PRBC and her hgb 08/20 is 8.1. She tells me that she did have a history of duodenal ulcer in the past. no nsaid use. She tells me that since she has recieved the blood that her SOB has improved. she tells me she is predominantly constipated which is her baseline. she denies any chest pain, nausea, vomiting, abdominal pain, change in bowels, melena, or brbpr. EGD 05/2022 nonbleeding duodenal ulcer, small hiatal hernia, mildly severe reflux. Allergies Allergy/AdvReac Type Severity Reaction Status Date / Time Penicillins Allergy Unknown tinnitus Verified 08/20/23 12:07 Sulfa (Sulfonamide Allergy Unknown Unknown Verified 08/20/23 12:07 Antibiotics) Home Medications Medication Instructions Recorded Confirmed Type cholecalciferol (vitamin D3) 125 125 mcg PO DAILY #30 caps 11/08/22 08/20/23 Rx mcg (5,000 unit) capsule hydrochlorothiazide 12.5 mg tablet 12.5 mg PO DAILY #90 tabs 11/08/22 08/20/23 Rx pantoprazole 40 mg tablet,delayed 40 mg PO BID #180 tabs 02/25/23 08/20/23 Rx release ondansetron 4 mg disintegrating 4 mg PO Q8H PRN nausea and 03/27/23 08/20/23 Rx tablet vomiting #30 tabs clopidogrel 75 mg tablet 75 mg PO DAILY #90 tabs 06/17/23 08/20/23 Rx atorvastatin 80 mg tablet 80 mg PO HS #90 tabs 06/27/23 08/20/23 Rx Patient History Medical History History of COVID-19 Fatty liver Seasonal allergies GERD (gastroesophageal reflux disease) RUQ pain Epigastric abdominal pain Surgical History Hx of tubal ligation History of surgical removal of pilonidal cyst Hx of tooth extraction Family History Mother Myocardial infarction Heart disease Stroke Father Diabetes Grandfather Cancer Uncle Cancer Denies family history of Ovarian cancer Prostate cancer Breast cancer Colorectal cancer Social History Smoking Status: Current every day smoker Tobacco Type: Cigarettes Age Started Using Tobacco: 18; Cigarettes Per Day: 10; Second Hand Exposure: Yes (as a child); Do You Dip or Chew Tobacco: No; Hx Alcohol Use: No Hx Substance Use: No Preferred Language: Mexican Communication Ability: Effective Visual Impairment: Limited Hearing Ability: Normal Weight Shifter Required: No Beliefs That Will Affect Care: None marital status: / Current Living Situation: Family Current Living Situation Comment: Lives at home with son Boris 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 has been having trouble with stomach ulcer. caffeine: No during the past year weight has: decreased > 10 lbs Dental Care, Regularly: No Physical Activity Frequency: 3-4 Times per Week Physical Activity Frequency Comment: Occasional exercise with working/house cleaning Seatbelt Use: always Sunscreen Use: Yes Assistive Devices: Denture - Upper, Denture - Lower and Glasses Review of Systems Review of Systems: All systems reviewed & are unremarkable except as noted in HPI & below Physical Exam Constitutional: WD/WN, vitals as above Respiratory: normal respiratory effort, lungs clear to auscultation Cardiovascular: RRR, no murmur, no edema Gastrointestinal (Abdomen): normal bowel sounds, soft, nontender, no hepatosplenomegaly Psychiatric: Orientation: alert and oriented x 3 Results & Data Vital Signs (Past 12 Hours) Vital Signs Temp Pulse Pulse Resp BP BP Pulse Ox 08/21/23 07:51 98.1 F 72 18 117/73 98 08/21/23 03:20 97.7 F 68 16 122/78 99 08/21/23 03:00 97.7 F 69 19 125/76 95 08/21/23 02:27 97.5 F L 86 18 115/65 97 08/21/23 01:57 97.4 F L 82 18 113/69 97 08/21/23 01:42 98.1 F 73 18 115/74 99 08/21/23 01:41 97.9 F 74 18 115/73 99 08/21/23 01:20 97.7 F 85 18 113/69 100 08/20/23 23:00 98.1 F 78 18 120/79 99 08/20/23 21:55 77 08/20/23 21:10 08/20/23 20:44 97.9 F 81 18 121/76 97 08/20/23 20:37 97.7 F 77 18 115/71 95 O2 Del Method 08/21/23 07:51 Room Air 08/21/23 03:20 08/21/23 03:00 Room Air 08/21/23 02:27 08/21/23 01:57 08/21/23 01:42 08/21/23 01:41 08/21/23 01:20 08/20/23 23:00 Room Air 08/20/23 21:55 08/20/23 21:10 Room Air 08/20/23 20:44 08/20/23 20:[address] SCAN OF THE ABDOMEN AND PELVIS WITH IV CONTRAST CLINICAL HISTORY: Constipation. Anemia. COMPARISON STUDY: Abdominal ultrasound dated 10/06/2021. TECHNIQUE: Following the IV administration of 92 cc of Optiray 320, CT scan of the abdomen and pelvis is performed from the lung bases to the proximal femora. Images are reviewed in the axial, sagittal, and coronal planes. IV contrast was administered without complication. A dose lowering technique was utilized adhering to the principles of ALARA. CT DOSE: 682.25 mGy.cm FINDINGS: Lung bases: The heart is normal in size and without pericardial effusion. There are scattered calcified granulomas. A 3 mm right lower lobe pulmonary nodule is seen on image #12. The lung bases are otherwise clear noting bibasilar scarring/atelectasis. Liver: The contrast-enhanced liver is normal in size, contour, and attenuation. There is no intrahepatic biliary ductal dilatation. The hepatic veins and portal veins are patent. Gallbladder: Unremarkable. Spleen: Normal in size and attenuation. Pancreas: There is significant and abnormal dilatation of the pancreatic duct which measures up to 12 mm near the ampulla. No obvious mass lesion is identified. There is corresponding pancreatic atrophy. There is no significant dilatation of the common bile duct. Adrenal glands: Unremarkable. Kidneys: The contrast enhanced kidneys are normal in size and without hydronephrosis. The kidneys enhance symmetrically. A 1.4 cm cyst is noted on the left. Abdominal vasculature: There is advanced atherosclerotic calcification and mild ectasia of the abdominal aorta. A stent in the left common iliac artery is patent. Bowel: There is mild colonic fecal retention. Question focal irregular wall thickening versus under distention of the ascending colon on axial image #159. No bowel obstruction is seen. There is mild infiltration identified around the proximal duodenum. There is layering hyperdense material within the stomach and duodenum. The appendix is well-visualized and normal. Peritoneum: There is no intraperitoneal free air or abdominal ascites. There is a small fat-containing umbilical hernia. Lymphadenopathy: None. Pelvic viscera: The bladder is mildly distended but otherwise normal in appearance. The uterus and adnexa are normal as visualized. Skeletal structures: The skeletal structures are osteopenic. There is moderate lumbosacral spondylosis. No lytic or blastic lesions are seen. IMPRESSION: 1. There is significant and abnormal dilatation of the main pancreatic duct with corresponding glandular atrophy. The duct is dilated to the ampulla, with no obvious mass lesion identified. The common bile duct and intrahepatic bile ducts are normal in caliber. Although this could potentially be related to stricture of the pancreatic duct, an occult ampullary mass lesion is the diagnosis of exclusion. GI follow-up and ERCP is recommended in follow-up. 2. There is mild infiltration seen around the proximal duodenum, which may be related to the pancreatic process. A duodenitis or ulcer disease could appear similar. Additionally, there is a small amount of layering hyperdense material within the stomach and proximal duodenum. This is nonspecific and may represent ingested material. Extravasated contrast is not entirely excluded. This should also be assessed at the time of endoscopy. 3. There is underdistention versus focal irregular wall thickening of the ascending colon. Underdistention is favored. If not recently performed then a follow-up colonoscopy is recommended for further assessment 4. Additional findings as above. Coding Level of Care Code 61098 INT INP/OBS CARE Diagnoses Symptomatic anemia D64.9
--- NOTE | 2023-08-21 09:37 | Anesthesiology Consultation ---
Date of Service August 21, 2023 Assessment & Plan Chart Review Chart Review: Acceptable Risk for Surgery Consults Requested none History Surgery Operation Date: 08/21/23 16:30 Proposed Procedures p Esophagogastroduodenoscopy Dr. Ade Booker MD Height/Weight Height: 5 ft 2 in Weight: 61.5 kg Allergies Allergy/AdvReac Type Severity Reaction Status Date / Time Penicillins Allergy Unknown tinnitus Verified 08/20/23 12:07 Sulfa (Sulfonamide Allergy Unknown Unknown Verified 08/20/23 12:07 Antibiotics) Medications Home Medications Medication Instructions Recorded Confirmed Last Taken cholecalciferol (vitamin D3) 125 125 mcg PO DAILY #30 caps 11/08/22 08/20/23 Unknown mcg (5,000 unit) capsule hydrochlorothiazide 12.5 mg tablet 12.5 mg PO DAILY #90 tabs 11/08/22 08/20/23 Unknown pantoprazole 40 mg tablet,delayed 40 mg PO BID #180 tabs 02/25/23 08/20/23 Unknown release ondansetron 4 mg disintegrating 4 mg PO Q8H PRN nausea and 03/27/23 08/20/23 Unknown tablet vomiting #30 tabs clopidogrel 75 mg tablet 75 mg PO DAILY #90 tabs 06/17/23 08/20/23 Unknown atorvastatin 80 mg tablet 80 mg PO HS #90 tabs 06/27/23 08/20/23 Unknown Active Medications Generic Name Dose Route Start Last Admin Trade Name Freq PRN Reason Stop Dose Admin Pantoprazole Sodium 40 mg/ 100 mls @ 20 mls/hr 08/20/23 16:15 08/21/23 08:15 Dextrose IV 09/19/23 16:14 8 mg/hr Q5H FUNMI 20 mls/hr Administration 8 MG/HR NPO Date Last Intake of Fluids: 08/20/23 Time Last Intake of Fluids: 11:00 Date Last Intake of Solids: 08/20/23 Time Last Intake of Solids: 11:00 Past Medical History Medical History History of COVID-19 Fatty liver Seasonal allergies GERD (gastroesophageal reflux disease) RUQ pain Epigastric abdominal pain Past Family History Family History Mother Myocardial infarction Heart disease Stroke Father Diabetes Grandfather Cancer Uncle Cancer Denies family history of Ovarian cancer Prostate cancer Breast cancer Colorectal cancer Past Surgical History Surgical History Hx of tubal ligation History of surgical removal of pilonidal cyst Hx of tooth extraction Social History Smoking Status: Current every day smoker tobacco type: cigarettes Smoking cigarettes per day: 10 Do You Dip or Chew Tobacco: No Hx Alcohol Use: No Alcohol type: other alcohol intake frequency: holidays/special occasions only Hx Substance Use: No substance use type: does not use Physical Exam Vital Signs Last Vital Signs Temp 36.4 C L 08/21/23 09:09 Pulse 59 L 08/21/23 09:09 Resp 16 08/21/23 09:09 BP 120/70 08/21/23 09:09 Pulse Ox 99 08/21/23 09:09 O2 Del Method Room Air 08/21/23 09:09 Testing Laboratory Results 08/21/23 04:07 08/21/23 04:07 PT 11.4 Seconds (9.0-12.0) 08/21/23 04:07 INR 1.0 (0.9-1.1) 08/21/23 04:07 APTT 21 Seconds (21-31) 08/20/23 14:01 Urine Color Yellow 08/20/23 18:15 Urine Appearance Clear (Clear) 08/20/23 18:15 Urine pH 6.0 (4.5-7.5) 08/20/23 18:15 Ur Specific [place] 1.027 (1.000-1.030) 08/20/23 18:15 Urine Protein Negative (Negative) 08/20/23 18:15 Urine Glucose (UA) Negative (Negative) 08/20/23 18:15 Urine Ketones Negative (Negative) 08/20/23 18:15 Urine Nitrite Negative (Negative) 08/20/23 18:15 Ur Leukocyte Esterase Negative (Negative) 08/20/23 18:15 Blood Type O Positive 08/20/23 14:45 Antibody Screen NEGATIVE 08/20/23 14:45
--- NOTE | 2023-08-21 10:02 | Hospitalist Progress Note ---
Date of Service August 21, 2023 Assessment & Plan (1) Acute blood loss anemia: Plan: Consult GI - planning on EGD today Continue pantoprazole IV drip NPO (2) Symptomatic anemia: Plan: q6h H&H Transfuse to aim Hgb > 7 Hgb 4.7 -> 8.1 s/p 3 units packed RBCs INR/PTT normal on admission Hold clopidogrel - s/p Successful angioplasty and stenting of left common iliac artery occlusion with intravascular lithotripsy (shockwave 7.0 mm) and 8.0 x 40 mm self-expanding stent placed 05/21/2023, need to restart clopidogrel as soon as stable from GI perspective Hold anti-hypertensives B12 288, since < 400 will start replacement for this s/p endoscopy Transferrin sats 3%, ferritin not measured - suspect acute on chronic blood loss (3) Abnormal CT of the abdomen: Plan: Pancreatic duct dilatation - suspect due to GI bleed but will get serial LFTs and lipase (lipase not taken on admission but no current epigastric pain) Thickening of the ascending colon - will need GI follow up for colonoscopy for this (4) Leukocytosis: Plan: Improving without antibiotics. Low suspicion of infectious process. (5) Dyspnea on exertion: Plan: Suspected secondary to anemia - improved (6) Elevated troponin: Plan: Secondary to demand-ischemia Troponin up trending but < 1000 in setting of significant anemia, will trend to peak Repeat EKG last night, improving ST depression, no current chest pain, repeat EKG today pending (7) Hypokalemia: Plan: Mildly low, replace as needed (8) PAD (peripheral artery disease): Plan: -S/P Stent to left JEANA occlusion with Dr. Domingo on 05/2023 -Has been on plavix monotherapy, last dose was this am -Will need to hold plavix for now until she is stable from a bleeding risk -Will need to resume plavix when stable (9) GERD (gastroesophageal reflux disease): Plan: -Continue Protonix drip (10) HTN (hypertension): Plan: -Stable -Holding antihypertensives with possible GI bleed (11) COPD (chronic obstructive pulmonary disease): Plan: Stable on RA In no respiratory distress Incentive spirometry Plan VTE prophylaxis - no chemical prophylaxis due to acute blood loss anemia Diet - n.p.o. pending EGD Disposition - continued admission on PCU pending EGD and repeat Hgb Admission and Anticipated Discharge Date Admission Date: August 20, 2023 Subjective Feeling much improved s/p packed RBCs. Awaiting endoscopy planned for today. No dizziness, chest pain or shortness of breath at rest Review of Systems Review of Systems: All systems reviewed & are unremarkable except as noted in HPI & below Physical Exam Constitutional: WD/WN, vitals as above Eyes: + anicteric sclerae; normal pupil size Respiratory: normal respiratory effort, lungs clear to auscultation Cardiovascular: RRR, no murmur, no edema Gastrointestinal (Abdomen): normal bowel sounds, soft, nontender, no hepatosplenomegaly Skin: no rashes, warm and dry Psychiatric: A+Ox3, euthymic affect Results & Data Results & Data Vital Signs (Past 12 Hours) Vital Signs Temp Pulse Pulse Resp BP BP Pulse Ox 08/21/23 09:09 36.4 C L 59 L 16 120/70 99 08/21/23 07:51 36.7 C 72 18 117/73 98 08/21/23 03:20 36.5 C 68 16 122/78 99 08/21/23 03:00 36.5 C 69 19 125/76 95 08/21/23 02:27 36.4 C L 86 18 115/65 97 08/21/23 01:57 36.3 C L 82 18 113/69 97 08/21/23 01:42 36.7 C 73 18 115/74 99 08/21/23 01:41 36.6 C 74 18 115/73 99 08/21/23 01:20 36.5 C 85 18 113/69 100 08/20/23 23:00 36.7 C 78 18 120/79 99 O2 Del Method 08/21/23 09:09 Room Air 08/21/23 07:51 Room Air 08/21/23 03:20 08/21/23 03:00 Room Air 08/21/23 02:27 08/21/23 01:57 08/21/23 01:42 08/21/23 01:41 08/21/23 01:20 08/20/23 23:00 Room Air PG Care Time/CCT Total # of Minutes Spent Total Time Spent with Patient: Total time spent is greater than 50% in coordination of care (as documented) at patient's floor/unit and/or counseling patient: Coding Level of Care Code 59288 SUB INP/OBS CARE 350MIN Diagnoses Acute blood loss anemia D62 Symptomatic anemia D64.[address] of the abdomen R93.5 Leukocytosis D72.829 Leukocytosis type: unspecified Dyspnea on exertion R06.09 Elevated troponin R79.89 Hypokalemia E87.6 PAD (peripheral artery disease) I73.9 GERD (gastroesophageal reflux disease) K21.9 HTN (hypertension) I10 COPD (chronic obstructive pulmonary disease) J44.9 (4) Leukocytosis Leukocytosis type: unspecified Qualified Code(s): D72.829 - Elevated white blood cell count, unspecified
--- NOTE | 2023-08-21 10:15 | Anesthesiology Progress Note ---
Date of Service August 21, 2023 Anesthesia Post Procedure Vital Signs Vital Signs: Temp Pulse Pulse Resp BP BP Pulse Ox 08/21/23 09:09 36.4 C L 59 L 16 120/70 99 08/21/23 07:51 36.7 C 72 18 117/73 98 08/21/23 03:20 36.5 C 68 16 122/78 99 08/21/23 03:00 36.5 C 69 19 125/76 95 08/21/23 02:27 36.4 C L 86 18 115/65 97 08/21/23 01:57 36.3 C L 82 18 113/69 97 08/21/23 01:42 36.7 C 73 18 115/74 99 08/21/23 01:41 36.6 C 74 18 115/73 99 08/21/23 01:20 36.5 C 85 18 113/69 100 08/20/23 23:00 36.7 C 78 18 120/79 99 08/20/23 21:55 77 08/20/23 21:10 08/20/23 20:44 36.6 C 81 18 121/76 97 08/20/23 20:37 36.5 C 77 18 115/71 95 08/20/23 19:55 85 08/20/23 19:47 36.7 C 18 124/75 100 08/20/23 19:37 36.6 C 88 18 119/74 99 08/20/23 19:09 36.9 C 96 H 20 116/71 99 08/20/23 19:07 36.9 C 96 H 20 116/71 99 08/20/23 18:52 36.7 C 86 18 124/75 100 08/20/23 18:52 36.9 C 96 H 20 116/71 99 08/20/23 18:36 36.7 C 88 18 113/77 98 08/20/23 17:54 36.7 C 90 20 97/66 L 98 08/20/23 17:14 36.7 C 96 H 20 111/68 98 08/20/23 17:11 98 08/20/23 16:15 93 H 08/20/23 16:14 36.7 C 96 H 20 117/72 98 08/20/23 15:44 36.7 C 100 H 20 122/75 100 08/20/23 15:29 36.7 C 97 H 18 109/75 100 08/20/23 15:10 36.7 C 97 H 18 124/75 100 08/20/23 14:47 98 08/20/23 14:39 103 H 08/20/23 13:50 35.7 C L 102 H 16 139/62 100 08/20/23 13:50 O2 Del Method 08/21/23 09:09 Room Air 08/21/23 07:51 Room Air 08/21/23 03:20 08/21/23 03:00 Room Air 08/21/23 02:27 08/21/23 01:57 08/21/23 01:42 08/21/23 01:41 08/21/23 01:20 08/20/23 23:00 Room Air 08/20/23 21:55 08/20/23 21:10 Room Air 08/20/23 20:44 08/20/23 20:37 08/20/23 19:55 08/20/23 19:47 Room Air 08/20/23 19:37 08/20/23 19:09 Room Air 08/20/23 19:07 08/20/23 18:52 08/20/23 18:52 08/20/23 18:36 08/20/23 17:54 08/20/23 17:14 08/20/23 17:11 Room Air 08/20/23 16:15 08/20/23 16:14 08/20/23 15:44 08/20/23 15:29 08/20/23 15:10 08/20/23 14:47 Room Air 08/20/23 14:39 08/20/23 13:50 Room Air 08/20/23 13:50 Room Air Transfer of Care Handoff Completed per policy Notes Mental Status: alert / awake / arousable and participated in evaluation Patient Amnestic to Procedure: Yes Nausea / Vomiting: adequately controlled Pain: adequately controlled Airway Patency, RR, SpO2: stable & adequate BP & HR: stable & adequate Hydration State: stable & adequate Anesthetic Complications: no major complications apparent
--- NOTE | 2023-08-21 10:19 | GI REPORT ---
Patient Name: Thi Zacarias Procedure Date: 08/21/2023 9:18 AM Date of : 1955 Admit Type: Inpatient Age: 68 Gender: Female Attending MD: Elliott Booker MD, Procedure: Upper GI endoscopy Providers: Elliott Booker MD Referring MD: Romario Hawthorne Md Indications: Unexplained iron deficiency anemia Medicines: Monitored Anesthesia Care Complications: No immediate complications. Estimated blood loss: None. Estimated Blood Loss: Estimated blood loss: none. Procedure: Pre-Anesthesia Assessment: - Prior Anticoagulants: The patient has taken no anticoagulant or antiplatelet agents. - ASA Grade Assessment: III - A patient with severe systemic disease. After obtaining informed consent, the endoscope was passed under direct vision. Throughout the procedure, the patient's blood pressure, pulse, and oxygen saturations were monitored continuously. The Endoscope was introduced through the mouth, and advanced to the duodenal bulb. The upper GI endoscopy was accomplished without difficulty. The patient tolerated the procedure well. Findings: The examined esophagus was normal. The entire examined stomach was normal. A large infiltrative and obstructing mass with no bleeding was found in the duodenal bulb with an adjacent ulcer that was nonbleeding. Biopsies were taken with a cold forceps for histology. Estimated blood loss: none. Unable to advance past the mass into second portion of duodenum due to outlet obstruction. procedure aborted. Impression: - Normal esophagus. - Normal stomach. 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 Recommendation: - Transfer patient to another hospital for tertiary care, hepatobiliary surgery/surgical oncology and advanced GI for EUS/ERCP -supportive care, IVFs -NPO at this time - Await pathology results. Elliott Booker MD 08/21/2023 10:18:42 AM This report has been signed electronically. Note Initiated On: 08/21/2023 9:18 AM Number of Addenda: 0 I attest to the content of the Intraoperative Record and orders documented therein, exceptions below {[id number]}
--- NOTE | 2023-08-21 10:38 | Anesthesiology Progress Note ---
Date of Service August 21, 2023 Anesthesia Post Procedure Vital Signs Vital Signs: Temp Pulse Pulse Pulse Resp BP BP 08/21/23 10:22 70 16 112/67 08/21/23 10:11 144/82 H 08/21/23 10:06 58 L 16 89/53 L 08/21/23 09:09 36.4 C L 59 L 16 120/70 08/21/23 07:51 36.7 C 72 18 117/73 08/21/23 03:20 36.5 C 68 16 122/78 08/21/23 03:00 36.5 C 69 19 125/76 08/21/23 02:27 36.4 C L 86 18 115/65 08/21/23 01:57 36.3 C L 82 18 113/69 08/21/23 01:42 36.7 C 73 18 115/74 08/21/23 01:41 36.6 C 74 18 115/73 08/21/23 01:20 36.5 C 85 18 113/69 08/20/23 23:00 36.7 C 78 18 120/79 08/20/23 21:55 77 08/20/23 21:10 08/20/23 20:44 36.6 C 81 18 121/76 08/20/23 20:37 36.5 C 77 18 115/71 08/20/23 19:55 85 08/20/23 19:47 36.7 C 18 124/75 08/20/23 19:37 36.6 C 88 18 119/74 08/20/23 19:09 36.9 C 96 H 20 116/71 08/20/23 19:07 36.9 C 96 H 20 116/71 08/20/23 18:52 36.7 C 86 18 124/75 08/20/23 18:52 36.9 C 96 H 20 116/71 08/20/23 18:36 36.7 C 88 18 113/77 08/20/23 17:54 36.7 C 90 20 97/66 L 08/20/23 17:14 36.7 C 96 H 20 111/68 08/20/23 17:11 08/20/23 16:15 93 H 08/20/23 16:14 36.7 C 96 H 20 117/72 08/20/23 15:44 36.7 C 100 H 20 122/75 03/19/24 15:29 36.7 C 97 H 18 109/75 08/20/23 15:10 36.7 C 97 H 18 124/75 08/20/23 14:47 08/20/23 14:39 103 H 08/20/23 13:50 35.7 C L 102 H 16 139/62 08/20/23 13:50 Pulse Ox O2 Del Method O2 Flow Rate 08/21/23 10:22 97 Room Air 08/21/23 10:11 08/21/23 10:06 100 Oxymask 7 08/21/23 09:09 99 Room Air 08/21/23 07:51 98 Room Air 08/21/23 03:20 99 08/21/23 03:00 95 Room Air 08/21/23 02:27 97 08/21/23 01:57 97 08/21/23 01:42 99 08/21/23 01:41 99 08/21/23 01:20 100 08/20/23 23:00 99 Room Air 08/20/23 21:55 08/20/23 21:10 Room Air 08/20/23 20:44 97 08/20/23 20:37 95 08/20/23 19:55 08/20/23 19:47 100 Room Air 08/20/23 19:37 99 08/20/23 19:09 99 Room Air 08/20/23 19:07 99 08/20/23 18:52 100 08/20/23 18:52 99 08/20/23 18:36 98 08/20/23 17:54 98 08/20/23 17:14 98 08/20/23 17:11 98 Room Air 08/20/23 16:15 08/20/23 16:14 98 08/20/23 15:44 100 08/20/23 15:29 100 08/20/23 15:10 100 08/20/23 14:47 98 Room Air 08/20/23 14:39 08/20/23 13:50 100 Room Air 08/20/23 13:50 Room Air Transfer of Care Handoff Completed per policy Notes Mental Status: alert / awake / arousable and participated in evaluation Patient Amnestic to Procedure: Yes Nausea / Vomiting: adequately controlled Pain: adequately controlled Airway Patency, RR, SpO2: stable & adequate BP & HR: stable & adequate Hydration State: stable & adequate Anesthetic Complications: no major complications apparent
[2023-08-21] MEDS: LIDOCAINE 2% 2 ML VIAL/AMP(20MG/ML) INFIL ONE (11:14)
[2023-08-21] MEDS: PROPOFOL IV EMULSION 10 MG/ML 20 ML VIAL IV ONE ×2 (11:15)
[2023-08-21 11:30] LABS: Hematocrit (blood only) 27.7 % (37.0-47.0); Hemoglobin 8.4 g/dl (12.0-16.0)
[2023-08-21 12:04] LABS: Troponin I High Sensitivity 471.1 pg/ml (0-14)
[2023-08-21] MEDS: LACTATED RINGER'S 1,000 ML IV SCH (12:14)
[2023-08-21] MEDS: CYANOCOBALAMIN 1000 MCG/ML VIAL IM SCH (12:38)
--- NOTE | 2023-08-21 14:00 | Discharge Summary ---
Date of Service August 21, 2023 Admission HPI Per Admitting Provider Thi is a 68 year old female with a PMH significant for PAD S/P Stent to left JEANA occlusion 05/[address] Dustin Domingo (currently on Plavix), previous hx of DVT and PE (Previously on Plavix), HTN, dyslipidemia, CAD, tobacco abuse, COPD, and hx od PUD with previous GI bleed who presented to the [facility] ED from her PCP's office due to concerns for progressive MONAHAN/SOB. Per the PCP note, the patient has been experiencing SOB, fatigue, weakness, and chills since 08/14/23. Due to her complex medical hx including previous DVT/PE she was sent to the ED for further evaluation. She was noted to be tachycardic at 103 BPM but was otherwise stable. Labs were significant for a Hgb of 4.7 (down from 12 as of 04/17/23), WBC of 15 with neutrophil predominance of 12, Hct of 17, MCV of 63, MCHC of 26, stable cr of 0 .75 with elevated BUN of 29, AG of 12 with bicarb of 19, potassium of 3.1, LFT's and INR WNL, initial high sen trop of 75, and Covid 19/RSV/Influenza negative. Chest xray was read as "Emphysematous change with no active disease in the chest.". Prior to admission the patient was consented for blood, ordered 1 unit of uncrossed PRBC's with a second unit of crossed PRBC's to be giving after. At the time of the exam the patient was sitting in bed in no acute distress. She appears ill but non-toxic. She states that she had been in her normal state of health until 08/14/23 when she started to develop what she thought were flu like symptoms including chills, fatigue, body aches, and significant MONAHAN. She has been asymptomatic at rest. When asked, she clearly denies recent fever, chest pain/pressure, SOB at rest, cough, hemoptysis, abd pain, vomiting, dysuria, hematuria, melena, diarrhea, bright red stool, LE pain/swelling, and recent trauma. She has been taking her home medications as prescribed including her daily Plavix with her last dose being this am. She has had some nausea but denies vomiting. She states that she had an EGD approximately 2 years ago which is when she was diagnosed with her Duodenal Ulcer. She has been taking Protonix daily and denies recent alcohol, aspirin, Aleve, Advil, Motrin, or other NSAID's. She is still smoking approximately 10 Cigarettes daily. When she has pain recently she has only been using tylenol. She is a full code and would want her son to make medical decisions for her if she cannot make them herself. Please refer to Dr. Jesus' attestation for any changes to the treatment plan Principal Diagnosis Duodenal mass Acute blood loss anemia Discharge Exam Constitutional WD/WN, vitals as above Respiratory normal respiratory effort, lungs clear to auscultation Cardiovascular RRR, no murmur, no edema Gastrointestinal (Abdomen) Percussion/Palpation: + abdomen tender (epigastric) and abdomen soft Discharge Data Allergies Allergy/AdvReac Type Severity Reaction Status Date / Time Penicillins Allergy Unknown tinnitus Verified 08/20/23 12:07 Sulfa (Sulfonamide Allergy Unknown Unknown Verified 08/20/23 12:07 Antibiotics) Consultations 08/20/23 14:53 ED Decision to Admit Stat 08/20/23 15:34 Consult Gastroenterology Routine 08/21/23 13:54 Burn CD for patient Stat Procedures Performed Operation Date: 08/21/23 16:30 Actual Procedures p EGD Biopsy Cytology - Elliott Booker MD Ordered Studies 08/20/23 16:23 CT abd pelvis IV con only Stat Hospital Course (1) Acute blood loss anemia: Consult GI - planning on EGD today Continue pantoprazole IV drip NPO (2) Symptomatic anemia: Thi Zacarias is a 68 year old female admitted to [facility] from August 19 - 2023 due to acute on chronic anemia and shortness of breath on exertion. She was diagnosed with acute blood loss anemia and acute gastrointestinal bleed requiring 3 units of packed red blood cells. She underwent upper endoscopy which was concerning for a large infiltrative and obstructing mass in the duodenal bulb. Gastroenterology recommended transfer to tertiary care center for ongoing workup due to duodenal outlet obstruction and transfer was arranged to [facility]. Hemoglobin stable at 8.4 at time of transfer. (3) Abnormal CT of the abdomen: (4) Leukocytosis: (5) Dyspnea on exertion: (6) Elevated troponin: (7) Hypokalemia: (8) PAD (peripheral artery disease): (9) GERD (gastroesophageal reflux disease): (10) HTN (hypertension): (11) COPD (chronic obstructive pulmonary disease): Total Time Total Time Spent Total Time Spent (In Minutes): 40 Discharge Plan Discharge Items Patient Disposition: Transfer Acute Care Hospital Reason For Visit: ACUTE BLOOD LOSS ANEMIA, MONAHAN, ELEVATED TROP Discharge Diagnosis: Duodenal mass Acute blood loss anemia Activity: Resume your previous activity Non-emergency contact: Primary Care Provider Call non-emergency contact if: you have any medication questions and your symptoms worsen Follow-up/Referrals: Shaun Khan DO [Primary Care Provider] - Diet: Nothing by Mouth Addtl Attending Provider Instructions: You were admitted to [facility] from August 19 - 2023 due to acute on chronic anemia and shortness of breath on exertion. You were diagnosed with acute blood loss anemia and acute gastrointestinal bleed requiring 3 units of packed red blood cells. You underwent upper endoscopy which was concerning for a large infiltrative and obstructing mass in the duodenal bulb. Gastroenterology recommended transfer to tertiary care center for ongoing workup due to outlet obstruction and transfer was arranged to [facility]. Hemoglobin stable at 8.4 at time of transfer. Please note medical list below is outpatient medications, please see scanned sheet for inpatient medication list. Pending Studies at Discharge: No Stand-Alone Forms: My [facility] Skilled Items Patient informed of condition?: Yes DNR: No Discharge Level of Care: Other Communicable Disease: No Discharge Prognosis: Improving Lines: Peripheral IV Urinary Catheter: No Medications and DC Order Prescriptions: Continued pantoprazole 40 mg tablet,delayed release (DR/EC) 40 mg PO BID Qty: 180 3RF ondansetron 4 mg tablet,disintegrating 4 mg PO Q8H PRN (Reason: nausea and vomiting) Qty: 30 5RF clopidogrel 75 mg tablet 75 mg PO DAILY Qty: 90 3RF cholecalciferol (vitamin D3) 125 mcg (5,000 unit) capsule 125 mcg PO DAILY Qty: 30 0RF hydrochlorothiazide 12.5 mg tablet 12.5 mg PO DAILY Qty: 90 3RF atorvastatin 80 mg tablet 80 mg PO HS Qty: 90 3RF Discharge Orders: Discharge Order (Routine); Ordered 08/21/23 Ordered By: Romario Hawthorne Admission Data Admit Date/Time: 08/20/23 15:49 Attending Provider: Romario Hawthorne Admit Provider: Warner Jesus Primary Care Provider: Shaun Khan Other Providers: Warner Jesus; Elliott Booker Coding Level of Care Code 19692 INP/OBS DISCH >30 MIN Diagnoses Acute blood loss anemia D62 Symptomatic anemia D64.[address] of the abdomen R93.5 Leukocytosis D72.829 Leukocytosis type: unspecified Dyspnea on exertion R06.09 Elevated troponin R79.89 Hypokalemia E87.6 PAD (peripheral artery disease) I73.9 GERD (gastroesophageal reflux disease) K21.9 HTN (hypertension) I10 COPD (chronic obstructive pulmonary disease) J44.9
--- NOTE | 2023-08-21 15:45 | Electrocardiogram Report ---
Test Reason : Blood Pressure : / mmHG Vent. Rate : 082 BPM Atrial Rate : 082 BPM P-R Int : 154 ms QRS Dur : 088 ms QT Int : 382 ms P-R-T Axes : 065 020 042 degrees QTc Int : 446 ms Normal sinus rhythm Nonspecific T wave abnormality Abnormal ECG When compared with ECG of 20-AUG-2023 14:00, ST no longer depressed in Lateral leads Nonspecific T wave abnormality, worse in Anterolateral leads Confirmed by Dustin Amador ([id number]) on 08/21/2023 3:45:25 PM Referred By: REFERRED SELF Confirmed By:Jose Amador
--- NOTE | 2023-08-21 16:01 | Electrocardiogram Report ---
Test Reason : Blood Pressure : / mmHG Vent. Rate : 064 BPM Atrial Rate : 064 BPM P-R Int : 162 ms QRS Dur : 098 ms QT Int : 532 ms P-R-T Axes : 050 002 252 degrees QTc Int : 548 ms Normal sinus rhythm Possible Left atrial enlargement T wave abnormality, consider inferior ischemia T wave abnormality, consider anterolateral ischemia vs cerebrovascular event Prolonged QT Abnormal ECG When compared with ECG of 20-AUG-2023 20:14, (unconfirmed) T wave inversion now evident in Inferior leads T wave inversion now evident in Anterior leads QT has lengthened Confirmed by Dustin Amador ([id number]) on 08/21/2023 4:00:48 PM Referred By: REFERRED SELF Confirmed By:Jose Amador
--- NOTE | 2023-08-23 12:06 | Coding Query ---
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 Please assist us with the question(s) below: Pt admitted with GI hemorrhage, acute blood loss anemia and gastric outlet obstruction. . EGD with biopsy of duodenum. 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
--- NOTE | 2023-09-02 05:06 | Coding Query ---
PATHOLOGY To promote full compliance with coding requirements relating to patient care, physician participation is requested in all cases of cpc coder uncertainty. Please assist us with the question(s) below: Please review the Pathology report and please document any relevant diagnosis(es) below. Thank you. AMADA Brown [facility] Diagnosis(es): MTDD
== END 2023-08-21 15:06 | disposition short-term general hospital (02) | DRG 378 ==
LOC: ED 13:48 → SUATTDRO 15:49 → EDINP 15:49 → 2S 19:09